=== PATIENT | female | born 1950 | race Caucasian/White ===

== ENCOUNTER 2017-08-13 10:24 | Outpatient (CLI) | payer OTHER | END 2017-08-13 10:31 | disposition home or self-care (01) | LOC: SONOGRAMA 10:24 | DX: M25.511 Pain in right shoulder (principal) ==

== ENCOUNTER 2017-11-09 17:03 | Outpatient (CLI) | payer OTHER | END 2017-11-09 17:08 | disposition home or self-care (01) | LOC: RAD 17:03 | DX: M17.0 Bilateral primary osteoarthritis of knee (principal) ==

== ENCOUNTER 2022-09-23 12:25 | Outpatient (CLI) | payer OTHER | END 2022-09-23 12:34 | disposition home or self-care (01) | LOC: SONOGRAMA 12:25 | PROVIDERS: ATTEND Physical Medicine & Rehabilitation | DX: M75.102 Unspecified rotator cuff tear or rupture of left shoulder, not specified as traumatic (principal) ==